=== PATIENT | female | born 1960 | race Caucasian/White ===

== ENCOUNTER 2017-06-10 02:05 | Observation (INO) ==
--- NOTE | 2017-06-10 02:22 | Emergency Department Note ---
Disposition Clinical Impression: COPD exacerbation, Acute viral bronchitis Disposition: Admitted As Inpatient Condition: Fair Time of Disposition: 06:24 SOB HPI - General Chief Complaint: ED Shortness of Breath/Dyspnea Stated Complaint: carmen Time Seen by Provider: 06/10/17 02:13 Source: patient, EMS Limitations: no limitations Nursing Notes Reviewed: Yes Vital Signs Reviewed: Yes - History of Present Illness 57-year-old female complains of worsening shortness of breath over the past 3 days. Patient states she was diagnosed with bronchitis 3 days ago, but today her shortness of breath worsened severely x 3hrs ago. Patient brought in by EMS who states patient was hypoxic at 88% on room air and placed on oxygen via nasal cannula and given DuoNeb. Patient's breathing improved and was brought to the emergency department. Patient denies history of COPD and cardiac disease. Patient has a history of hypertension and hypercholesterolemia. Patient denies any chest pain - Related Data Allergies Allergy/AdvReac Type Severity Reaction Status Date / Time No Known Allergies Allergy Verified 06/10/17 02:11 All systems ED: reviewed and negative except as stated. Review of Systems: As Per HPI Constitutional: Denies: fever, chills, weakness ENT ED: Reports: congestion Cardiovascular: Denies: chest pain, palpitations Respiratory: Reports: cough. Denies: dyspnea Gastrointestinal: Denies: abdominal pain, nausea, vomiting, diarrhea Past Medical History - Past Medical History Attestation: Yes The following information was validated with the patient. Source: patient, nursing notes reviewed Medical history: Reports: fibromyalgia, hypertension, TIA - Social History Smoking Status: Current every day smoker Smokeless Tobacco Status: No Alcohol use: Reports: none Drug use: Reports: none Physical Exam Vital Signs Temperature 98.5 F 06/10/17 02:06 Pulse Rate 109 06/10/17 02:06 Respiratory Rate 24 06/10/17 02:06 Blood Pressure 142/84 06/10/17 02:06 O2 Sat by Pulse Oximetry 100 06/10/17 02:06 Temperature 98.5 F 06/10/17 02:06 Pulse Rate 109 06/10/17 02:06 Respiratory Rate 24 06/10/17 02:06 Blood Pressure 142/84 06/10/17 02:06 O2 Sat by Pulse Oximetry 100 06/10/17 02:06 Oxygen Delivery Oxygen Delivery Aerosol Mask CONSTITUTIONAL: Alert and oriented X3, well-nourished, well appearing, in acute distress secondary to difficulty breathing. Patient's tachypnea And hypertensive at 142/84 but afebrile. At 100% on 2 L via nasal cannula. During exam I was surprised by a bed blood that came out from patient's hairline. Bedbugs were noticeable on patient's purse and other parts of her clothing. HEAD: Normocephalic; atraumatic. EYES: PERRL, no scleral icterus. NOSE: The nose is normal in appearance without rhinorrhea RESP: Fine rales left lower lung field CARD: Regular rhythm, without murmurs, rub or gallop ABD: Non-distended; non-tender, soft,without rigidity, rebound or guarding SKIN: Normal for age and race; warm and dry; no apparent lesions - General Limitations: no limitations General appearance: alert, in no apparent distress Course - Reevaluation(s) Reevaluation #1: Reexamination. Patient states she still does not have any pain but now states that she been having chest pressure. She states currently 5/10. Troponin is negative, EKG negative for ischemia. Aspirin was ordered. Patient will receive nitroglycerin trial. Time: 03:50 Reevaluation #2: I ambulated the patient at bedside. Patient walked around the bed and her O2 saturation levels drop down to 87%. Patient is placed back on 2 L via nasal cannula current plan is for admission. Patient understands and agrees to the decision for admission. Time: 04:39 Vital Signs Temperature 98.5 F 06/10/17 02:06 Pulse Rate 109 06/10/17 02:06 Respiratory Rate 24 06/10/17 02:06 Blood Pressure 142/84 06/10/17 02:06 O2 Sat by Pulse Oximetry 100 06/10/17 02:06 Temperature 98.5 F 06/10/17 02:06 Pulse Rate 90 06/10/17 05:34 Respiratory Rate 20 06/10/17 05:34 Blood Pressure 134/86 06/10/17 05:34 O2 Sat by Pulse Oximetry 95 06/10/17 05:34 Oxygen Delivery Oxygen Delivery Nasal Cannula Shortness of Breath/Dyspnea - MDM Narrative Medical decision making narrative: Acute respiratory distress: Acute onset of difficulty breathing with hypoxia. Patient is low risk under Wells PE criteria. D-dimer ordered Chest x-ray ordered look for pneumonia. Labs ordered to rule out ACS. Patient denies COPD but is a smoker of a half a pack a day previous one pack a day. Patient's lab is unremarkable. Troponin negative. Chest x-ray shows some bilateral lower lung field haziness but no consolidations. Formal read states no acute abnormalities per radiologist. Patient was ambulated and her O2 saturations dropped to 87% with just walking around the bed. Patient is not on oxygen at home and is requiring 2 L via nasal cannula to maintain her O2 sats between 92-94%. I recommended admission to the patient for COPD exacerbation. Patient currently has no chest pressure and is comfortable. Patient received aspirin, Solu-Medrol and DuoNeb was given by EMS, which improved patient's breathing. The patient has no lung wheezing. Patient is accepted for admission by Dr. Cabrera in stable condition. He asked to place patient on levofloxacin 500 mg by mouth. - Lab Data Lab results reviewed: Yes I reviewed the patient's lab results. Result diagrams: 06/10/17 03:02 06/10/17 03:02 Lab Results 06/10/17 06/10/17 06/10/17 Range/Units 03:01 03:02 03:02 WBC 5.5 (4.3-11.1) K/mcL RBC 4.60 (3.82-4.97) M/mcL Hgb 13.4 (11.5-15.4) g/dL Hct 40.3 (35.3-44.9) % MCV 87.6 (83.0-100.0) fL MCH 29.1 (28.0-33.3) pg MCHC 33.3 (31.6-35.5) g/dL RDW 13.2 (11.5-14.5) % Plt Count 194 (140-400) K/mcL MPV 9.3 L (9.4-12.4) fL Immature Gran % 1.1 (0-4) % Seg Neutrophils % 84.0 % Lymphocytes % 7.3 % Monocytes % 7.4 % Eosinophils % 0.0 % Basophils % 0.2 % Neutrophils # 4.6 (1.6-8.9) K/mcL Lymphocytes # 0.4 L (0.6-4.6) K/mcL Monocytes # 0.4 (0.0-1.3) K/mcL Eosinophils # 0.0 (0.0-0.6) K/mcL Basophils # 0.0 (0.0-0.2) K/mcL D-Dimer (0-500) ng/mLFEU Sodium 139 (136-145) mEq/L Potassium 3.8 (3.5-5.1) mEq/L Chloride 107 (98-107) mEq/L Carbon Dioxide 26 (23-29) mEq/L BUN 31 H (6-20) mg/dL Creatinine 0.95 (0.60-1.20) mg/dL Est GFR ( Amer) > 60 (> 60) Est GFR (Non-Af Amer) > 60 (> 60) BUN/Creatinine Ratio 33 H (6-26) Glucose 186 H (70-105) mg/dL Calculated Osmolality 299 (280-300) Calcium 9.0 (8.6-10.3) mg/dL Troponin I (< 0.04) ng/mL B-Natriuretic Peptide 74 (Less than 100) pg/mL 06/10/17 06/10/17 Range/Units 03:02 03:02 WBC (4.3-11.1) K/mcL RBC (3.82-4.97) M/mcL Hgb (11.5-15.4) g/dL Hct (35.3-44.9) % MCV (83.0-100.0) fL MCH (28.0-33.3) pg MCHC (31.6-35.5) g/dL RDW (11.5-14.5) % Plt Count (140-400) K/mcL MPV (9.4-12.4) fL Immature Gran % (0-4) % Seg Neutrophils % % Lymphocytes % % Monocytes % % Eosinophils % % Basophils % % Neutrophils # (1.6-8.9) K/mcL Lymphocytes # (0.6-4.6) K/mcL Monocytes # (0.0-1.3) K/mcL Eosinophils # (0.0-0.6) K/mcL Basophils # (0.0-0.2) K/mcL D-Dimer 260 (0-500) ng/mLFEU Sodium (136-145) mEq/L Potassium (3.5-5.1) mEq/L Chloride (98-107) mEq/L Carbon Dioxide (23-29) mEq/L BUN (6-20) mg/dL Creatinine (0.60-1.20) mg/dL Est GFR ( Amer) (> 60) Est GFR (Non-Af Amer) (> 60) BUN/Creatinine Ratio (6-26) Glucose (70-105) mg/dL Calculated Osmolality (280-300) Calcium (8.6-10.3) mg/dL Troponin I < 0.03 (< 0.04) ng/mL B-Natriuretic Peptide (Less than 100) pg/mL - Radiology Data Radiology results reviewed: Yes I reviewed the patient's radiology results. Chest X-Ray 06/10/17 02:26 IMPRESSION: No acute cardiopulmonary abnormality. D/ / Manny Ferreira MD / Manny Ferreira MD Interpreting Provider: Manny Ferreira MD - EKG Data EKG attestation: Yes I reviewed and interpreted this EKG. EKG results narrative: EKG taken 06/10/2017@0-16 hours shows sinus tachycardia at a rate of [address] elevations in any leads, patient has slight ST depressions in V3 no T-wave inversions previous EKG for comparison taken 10/21/2004 shows similar waveform was T-wave inversions in anterior leads. Today's EKG looks better than previous. Attestation Statement - Attestation Attestation: I examined this patient and my medical decision-making was reviewed with the Resident Physician. I agree with the documented findings, disposition and treatment plan as described except to the extent set forth below. Patient eating or shortness of breath. Onset 3 days ago worsening today. Coughing. Brought in by EMS. Found hypoxic at 88% on room air. On examination here she is in no distress. Crackles in bases. Diminished breath sounds. Heart regular. Mildly tachycardic. Plan. Patient was mildly tachycardic so we did order a d-dimer which was negative. Cardiac workup was negative. Chest x-ray clear. She was given steroids. Admitted to medicine for further treatment of her bronchitis with hypoxemia. 35 minutes of critical care exclusive of separately billable procedures. Chest Pain - Lab Data Result diagrams: 06/10/17 03:02 02/10/18 03:02 Lab Results 06/10/17 06/10/17 06/10/17 Range/Units 03:01 03:02 03:02 WBC 5.5 (4.3-11.1) K/mcL RBC 4.60 (3.82-4.97) M/mcL Hgb 13.4 (11.5-15.4) g/dL Hct 40.3 (35.3-44.9) % MCV 87.6 (83.0-100.0) fL MCH 29.1 (28.0-33.3) pg MCHC 33.3 (31.6-35.5) g/dL RDW 13.2 (11.5-14.5) % Plt Count 194 (140-400) K/mcL MPV 9.3 L (9.4-12.4) fL Immature Gran % 1.1 (0-4) % Seg Neutrophils % 84.0 % Lymphocytes % 7.3 % Monocytes % 7.4 % Eosinophils % 0.0 % Basophils % 0.2 % Neutrophils # 4.6 (1.6-8.9) K/mcL Lymphocytes # 0.4 L (0.6-4.6) K/mcL Monocytes # 0.4 (0.0-1.3) K/mcL Eosinophils # 0.0 (0.0-0.6) K/mcL Basophils # 0.0 (0.0-0.2) K/mcL D-Dimer (0-500) ng/mLFEU Sodium 139 (136-145) mEq/L Potassium 3.8 (3.5-5.1) mEq/L Chloride 107 (98-107) mEq/L Carbon Dioxide 26 (23-29) mEq/L BUN 31 H (6-20) mg/dL Creatinine 0.95 (0.60-1.20) mg/dL Est GFR ( Amer) > 60 (> 60) Est GFR (Non-Af Amer) > 60 (> 60) BUN/Creatinine Ratio 33 H (6-26) Glucose 186 H (70-105) mg/dL Calculated Osmolality 299 (280-300) Calcium 9.0 (8.6-10.3) mg/dL Troponin I (< 0.04) ng/mL B-Natriuretic Peptide 74 (Less than 100) pg/mL 06/10/17 06/10/17 Range/Units 03:02 03:02 WBC (4.3-11.1) K/mcL RBC (3.82-4.97) M/mcL Hgb (11.5-15.4) g/dL Hct (35.3-44.9) % MCV (83.0-100.0) fL MCH (28.0-33.3) pg MCHC (31.6-35.5) g/dL RDW (11.5-14.5) % Plt Count (140-400) K/mcL MPV (9.4-12.4) fL Immature Gran % (0-4) % Seg Neutrophils % % Lymphocytes % % Monocytes % % Eosinophils % % Basophils % % Neutrophils # (1.6-8.9) K/mcL Lymphocytes # (0.6-4.6) K/mcL Monocytes # (0.0-1.3) K/mcL Eosinophils # (0.0-0.6) K/mcL Basophils # (0.0-0.2) K/mcL D-Dimer 260 (0-500) ng/mLFEU Sodium (136-145) mEq/L Potassium (3.5-5.1) mEq/L Chloride (98-107) mEq/L Carbon Dioxide (23-29) mEq/L BUN (6-20) mg/dL Creatinine (0.60-1.20) mg/dL Est GFR ( Amer) (> 60) Est GFR (Non-Af Amer) (> 60) BUN/Creatinine Ratio (6-26) Glucose (70-105) mg/dL Calculated Osmolality (280-300) Calcium (8.6-10.3) mg/dL Troponin I < 0.03 (< 0.04) ng/mL B-Natriuretic Peptide (Less than 100) pg/mL Heart Score - Score History: Moderately Suspicious EKG: Non Specific repolarisation Disturbance Age: 45-65 Risk Factors: Equal/Greater than 3 risk factor or history of atherosclerotic disease Troponin: Less than normal limit HEART Score Total: 5
[2017-06-10 03:08] LABS: Basophils % 0.2 %; Hematocrit 40.3 % (35.3-44.9); Hemoglobin 13.4 g/dL (11.5-15.4); Immature Granulocytes % 1.1 % (0-4); Lymphocytes # 0.4 K/mcL (0.6-4.6); Lymphocytes % 7.3 %; Mean Corpuscular HGB Conc 33.3 g/dL (31.6-35.5); Mean Corpuscular Hemoglobin 29.1 pg (28.0-33.3); Mean Corpuscular Volume 87.6 fL (83.0-100.0); Mean Platelet Volume 9.3 fL (9.4-12.4); Monocytes # 0.4 K/mcL (0.0-1.3); Monocytes % 7.4 %; Neutrophils # 4.6 K/mcL (1.6-8.9); Platelet Count 194 K/mcL (140-400); Red Cell Distribution Width 13.2 % (11.5-14.5)
[2017-06-10 03:22] LABS: BUN/Creatinine Ratio 33 (6-26); Blood Urea Nitrogen 31 mg/dL (6-20); Carbon Dioxide 26 mEq/L (23-29); Chloride 107 mEq/L (98-107); Glucose 186 mg/dL (70-105); Osmolality,Calculated 299 (280-300); Potassium 3.8 mEq/L (3.5-5.1); Sodium 139 mEq/L (136-145); eGFR For African Americans > 60 (> 60); eGFR For Non-African Americans > 60 (> 60)
[2017-06-10] MEDS ORDERED: Aspirin 81 MG TAB.CHEW PO ONE (03:48)
[2017-06-10] MEDS ORDERED: Nitroglycerin 0.4 MG TAB.SUBL SL PRN (04:21)
[2017-06-10] MEDS ORDERED: 0.9 % Sodium Chloride 1,000 ML IVC ONE (04:38)
[2017-06-10] MEDS ORDERED: methylPREDNISolone 125 MG/2 ML VIAL IVP ONE (04:38)
[2017-06-10] MEDS ORDERED: levoFLOXacin 500 MG TABLET PO ONE (05:20)
[2017-06-10] MEDS ORDERED: Naloxone 0.4 MG/ML INJ IVP PRN (07:47)
[2017-06-10] MEDS: MethylPREDNISolone 40 MG/ML VIAL IVP SCH ×3 (08:05→23:31)
--- NOTE | 2017-06-10 10:13 | Internal Med History&Physical ---
Date of Encounter: 06/10/17 Time of Encounter: 09:00 Assessment and Plan (1) Chest pain Current visit: Yes Status: Acute Retrosternal chest pain likely related to acute bronchitis and cough. EKG and chest x-ray showed no acute abnormality. Initial troponin is normal. Continue telemetry monitoring and trend troponins. Qualifiers: Chest pain type: unspecified Qualified Code(s): R07.9 - Chest pain, unspecified (2) COPD exacerbation Current visit: Yes Status: Acute Start IV steroids along with supplemental oxygen and bronchodilators. Chest x- ray shows no acute infiltrates/pneumonia. Not on home oxygen, requires home oxygen evaluation prior to discharge. Check respiratory infection panel. (3) Tobacco abuse Current visit: Yes Status: Chronic Continue nicotine transdermal patch. (4) Essential hypertension Current visit: Yes Status: Chronic Blood pressure well controlled. Resume home medications. (5) Hyperlipidemia Current visit: Yes Status: Chronic Qualifiers: Hyperlipidemia type: unspecified Qualified Code(s): E78.5 - Hyperlipidemia , unspecified (6) Fibromyalgia Current visit: Yes Status: Chronic Continue home medications. Internal Medicine - H&P: HPI Chief complaint: Shortness of breath Admitted From: Emergency Dept Plans for Post Hospital Care: Home History of present illness: Ms. Rae is a 57 year old female with history of hypertension and tobacco abuse , presents with complaints of worsening shortness of breath and malaise. Patient reports symptom onset was about one week ago, when she presented to her primary care provider and was diagnosed with acute bronchitis and was prescribed Z-Onel and prednisone. She completed her antibiotics and is still on her prednisone. However, she continued to experience worsening shortness of breath, wheezing, dry cough associated with generalized weakness and malaise. No fever, chills, palpitations, dizziness or syncope. She is an active smoker. Patient was noted to have bedbug infestation in the emergency room and is currently on contact precautions for this. Past Med Surg Social Fam HX - Past Medical History Medical history: fibromyalgia, hypertension, TIA Psychiatric history: anxiety, depression - Past Surgical History Surgical History: hysterectomy - Social History Smoking Status: Current every day smoker Packs per day: less than half pack Smokeless Tobacco Status: No Alcohol use: none Drug use: none Occupational status: disabled Current living situation: Home - Independent Activity Level: Uses cane/walker Recent Out of Country Travel Within the Last 8 Weeks: No Exposure or Possible Exposure to Illness During Travel: No - Family History Mother Hx Family Neurologic Disorders: Yes (TIA) Internal Medicine - H&P: Meds Albuterol Sulfate [Ventolin Hfa] 1 puff IH AD 06/10/17 [History] Gabapentin [Neurontin] 100 mg PO TID 06/10/17 [History] Lisinopril-HCTZ 20-12.5 [Prinzide 20-12.5] 1 tab PO DAILY 06/10/17 [History] Simvastatin [Zocor] 10 mg PO DAILY 06/10/17 [History] amLODIPine [Norvasc] 5 mg PO DAILY 06/10/17 [History] predniSONE [PredniSONE] 1 tab PO BID 06/10/17 [History] 3 Allergy/AdvReac Type Severity Reaction Status Date / Time No Known Allergies Allergy Verified 06/10/17 02:11 All Systems PM: A 10-system review of systems was performed and is negative for pertinent findings except as documented above in the HPI. - Constitutional Constitutional: anorexia, fatigue, malaise, no chills, no fever(s), no night sweats - EENT Eyes: no change in vision, no discharge, no pain, no photophobia Ears: no ear discharge, no ear pain, no tinnitus Nose, mouth and throat: no dysphagia, no nasal discharge, no neck pain, no sore throat - Cardiovascular Cardiovascular ROS IM: chest pain - Respiratory Respiratory: cough, dyspnea, dyspnea on exertion, wheezing, chest congestion - Gastrointestinal Gastrointestinal: no abdominal pain, no diarrhea, no hematemesis, no hematochezia, no melena, no nausea, no vomiting - Genitourinary Genitourinary: no change in urinary stream, no dysuria, no flank pain, no hematuria - Musculoskeletal Musculoskeletal ROS IM: no numbness, no tingling - Integumentary Integumentary IM: no rash, no unusual bruising - Neurological Neurological ROS: no confusion, no convulsions, no focal weakness, no numbness, no tingling, no tremor(s) - Hematologic/Lymphatic Hematologic/Lymphatic: no easy bruising - Constitutional Vitals: Temp Pulse Resp BP Pulse Ox 98.7 F 97 18 151/83 93 06/10/17 07:41 06/10/17 07:41 06/10/17 07:41 06/10/17 07:41 06/10/17 07:41 General appearance: Present: A&O X 3, answers questions appropriately - Respiratory Respiratory exam: Present: CTAB (Coarse breath sounds bilaterally, scattered rhonchi). Absent: accessory muscle use, rales, rhonchi, wheezes - Cardiovascular Cardiovascular exam: Present: RRR, +S1, +S2. Absent: diastolic murmur, gallop, rubs, systolic murmur - GI/Abdominal GI/Abdominal exam: Present: normal bowel sounds, soft (Obese), no peritoneal signs. Absent: distended, tenderness - Extremities Exam Extremities exam: Present: full ROM, warm, radial pulses palpable and symmetrical. Absent: calf tenderness, cyanotic, pedal edema - Neurological Exam Neurological exam: Present: CN II-XII intact, oriented X3, no focal deficits. Absent: pronater drift, facial droop, speech deficit Internal Med - H&P Results - Labs CBC & Chem 7: 06/11/17 06:17 06/11/17 06:17 Labs: Cardiac Enzymes 06/10/17 Range/Units 08:10 Troponin I < 0.03 (< 0.04) ng/mL
[2017-06-10] MEDS: Ipratropium/Albuterol Neb 3 ML IH PRN ×2 (12:42→22:06)
[2017-06-10] MEDS: amLODIPine 5 MG TABLET PO SCH (16:11)
[2017-06-10] MEDS: Gabapentin 100 MG CAPSULE PO SCH ×2 (16:11→20:11)
[2017-06-10 19:35] LABS: Adenovirus Not Detected (Not Detect); Bordetella Pertussis Not Detected (Not Detect); Chlamydophila pneumoniae Not Detected (Not Detect); Coronavirus 229E Not Detected (Not Detect); Coronavirus HKU1 Not Detected (Not Detect); Coronavirus NL63 Not Detected (Not Detect); Coronavirus OC43 Not Detected (Not Detect); Human Metapneumovirus Not Detected (Not Detect); Human Rhinovirus/Enterovirus Not Detected (Not Detect); Influenza A Subtype 2009 H1 Not Detected (Not Detect); Influenza A Untypeable Not Detected (Not Detect); Influenza B Not Detected (Not Detect); Mycoplasma pneumoniae Not Detected (Not Detect); Parainfluenza Virus 1 Not Detected (Not Detect); Parainfluenza Virus 2 Not Detected (Not Detect); Parainfluenza Virus 3 Not Detected (Not Detect); Parainfluenza Virus 4 Not Detected (Not Detect); Respiratory Syncytial Virus Not Detected (Not Detect)
[2017-06-11 06:39] LABS: Hematocrit 38.7 % (35.3-44.9); Hemoglobin 12.5 g/dL (11.5-15.4); Immature Granulocytes % 1.3 % (0-4); Lymphocytes # 0.4 K/mcL (0.6-4.6); Lymphocytes % 7.5 %; Mean Corpuscular HGB Conc 32.3 g/dL (31.6-35.5); Mean Corpuscular Hemoglobin 28.7 pg (28.0-33.3); Mean Platelet Volume 9.6 fL (9.4-12.4); Monocytes # 0.3 K/mcL (0.0-1.3); Neutrophils # 4.7 K/mcL (1.6-8.9); Platelet Count 206 K/mcL (140-400); Red Blood Count 4.35 M/mcL (3.82-4.97); Red Cell Distribution Width 13.3 % (11.5-14.5); Segmented Neutrophils % 86.2 %
[2017-06-11 06:57] LABS: BUN/Creatinine Ratio 40 (6-26); Blood Urea Nitrogen 29 mg/dL (6-20); Calcium 8.7 mg/dL (8.6-10.3); Carbon Dioxide 32 mEq/L (23-29); Chloride 107 mEq/L (98-107); Cholesterol 148 mg/dL (< 200); Glucose 152 mg/dL (70-105); HDL Cholesterol 49 mg/dL (40-59); LDL Cholesterol,Calculated 70 mg/dL (0-99); Osmolality,Calculated 301 (280-300); Sodium 141 mEq/L (136-145); Triglycerides 146 mg/dL (< 150); eGFR For African Americans > 60 (> 60); eGFR For Non-African Americans > 60 (> 60)
[2017-06-11] MEDS: Gabapentin 100 MG CAPSULE PO SCH ×3 (09:50→20:29)
[2017-06-11] MEDS: MethylPREDNISolone 40 MG/ML VIAL IVP SCH ×3 (09:50→23:54)
[2017-06-11] MEDS: amLODIPine 5 MG TABLET PO SCH (09:50)
[2017-06-11] MEDS: Ipratropium/Albuterol Neb 3 ML IH PRN ×2 (10:39→22:00)
[2017-06-11] MEDS: Acetaminophen 325 MG TABLET PO PRN (16:28)
--- NOTE | 2017-06-11 17:15 | Internal Med Progress Note ---
Date of Encounter: 06/11/17 Time of Encounter: 14:00 - Assessment and plan (1) Chest pain Current Visit: Yes Status: Acute Assessment and plan: Respiratory infection pattern tested positive for influenza A. Chest pain may be related to acute bronchitis. No acute EKG changes. Serial troponins negative for ACS. Continue telemetry. Qualifiers: Chest pain type: unspecified Qualified Code(s): R07.9 - Chest pain, unspecified (2) COPD exacerbation Current Visit: Yes Status: Acute Assessment and plan: Likely due to acute viral bronchitis. Improving slowly. Continue IV steroids, taper down as tolerated. Continue bronchodilators, supplemental oxygen as needed. Currently requiring at least 2-3 L/m via nasal cannula, wean down FiO2 as tolerated. Respiratory infection panel positive for influenza A. Tamiflu not beneficial at this time due to symptom onset more than 7 days ago. Droplet precautions. Supportive care. Physical and occupational therapy evaluation. (3) Tobacco abuse Current Visit: Yes Status: Chronic Assessment and plan: Continue nicotine transdermal patch. (4) Essential hypertension Current Visit: Yes Status: Chronic Assessment and plan: Blood pressure acceptable. Continue home medications. (5) Hyperlipidemia Current Visit: Yes Status: Chronic Qualifiers: Hyperlipidemia type: unspecified Qualified Code(s): E78.5 - Hyperlipidemia , unspecified (6) Fibromyalgia Current Visit: Yes Status: Chronic - Subjective Interval history: Reports feeling better. Continues to have intermittent dry cough along with some shortness of breath, has generalized weakness. No nausea, vomiting, diarrhea. Improved chest pain. - Constitutional Vitals: Temp Pulse Resp BP Pulse Ox 98.4 F 70 18 125/82 95 06/11/17 16:17 06/11/17 16:17 06/11/17 16:17 06/11/17 16:17 06/11/17 16:17 General appearance: Present: A&O X 3, answers questions appropriately - Respiratory Respiratory exam: Present: CTAB (Coarse breath sounds bilaterally, scattered rhonchi). Absent: accessory muscle use, rales, rhonchi, wheezes - Cardiovascular Cardiovascular exam: Present: RRR, +S1, +S2. Absent: diastolic murmur, gallop, rubs, systolic murmur - GI/Abdominal GI/Abdominal exam: Present: normal bowel sounds, soft, no peritoneal signs. Absent: distended, tenderness - Extremities Exam Extremities exam: Present: full ROM, warm, radial pulses palpable and symmetrical. Absent: calf tenderness, cyanotic, pedal edema Internal Medicine: Result - Labs CBC & Chem 7: 06/11/17 06:17 06/11/17 06:17 Labs: Short CBC 06/11/17 Range/Units 06:17 WBC 5.5 (4.3-11.1) K/mcL Hgb 12.5 (11.5-15.4) g/dL Hct 38.7 (35.3-44.9) % Plt Count 206 (140-400) K/mcL Neutrophils # 4.7 (1.6-8.9) K/mcL BMP 06/11/17 06:17 Sodium 141 Potassium 4.0 Chloride 107 Carbon Dioxide 32 H BUN 29 H Creatinine 0.72 Glucose 152 H Calcium 8.7 Cardiac Enzymes 06/10/17 Range/Units 18:09 Troponin I < 0.03 (< 0.04) ng/mL - ABG Interpretation ABG results: PT/INR, D-dimer D-Dimer 260 ng/mLFEU (0-500) 06/10/17 03:02 - VTE Documentation of Mechanical Device: Intermittent pneumatic compression device Consult Discharge Plan - Plan Instructions: Chest Pain (DC), How to Stop Smoking (DC), Chronic Obstructive Pulmonary Disease (DC), Chronic Hypertension (DC) Additional Instructions: F/up with PCP in 1-2 weeks F/up with Behavioral health at [facility] as scheduled Referrals: Travis Pickens, PAC [Primary Care Provider] - Prescriptions: predniSONE [PredniSONE] 40 mg PO DAILY #10 tablet
[2017-06-12] MEDS: Acetaminophen 325 MG TABLET PO PRN (11:07)
[2017-06-12] MEDS: MethylPREDNISolone 40 MG/ML VIAL IVP SCH (11:07)
[2017-06-12] MEDS: amLODIPine 5 MG TABLET PO SCH (11:07)
[2017-06-12] MEDS: Gabapentin 100 MG CAPSULE PO SCH (11:07)
--- NOTE | 2017-06-12 11:10 | Discharge Summary ---
Date of Encounter: 06/12/17 Time of Encounter: 11:08 - Discharge Diagnosis (1) Chest pain Priority: Primary Status: Acute Qualifiers: Chest pain type: unspecified Qualified Code(s): R07.9 - Chest pain, unspecified (2) COPD exacerbation Priority: Primary Status: Acute (3) Tobacco abuse Priority: Secondary Status: Chronic (4) Essential hypertension Priority: Secondary Status: Chronic (5) Hyperlipidemia Priority: Secondary Status: Chronic Qualifiers: Hyperlipidemia type: unspecified Qualified Code(s): E78.5 - Hyperlipidemia , unspecified (6) Fibromyalgia Priority: Secondary Status: Chronic - Discharge Medications Prescriptions: predniSONE [PredniSONE] 40 mg PO DAILY #10 tablet Home Medications: Albuterol Sulfate [Ventolin Hfa] 1 puff IH AD 06/10/17 [History] Gabapentin [Neurontin] 100 mg PO TID 06/10/17 [History] Lisinopril-HCTZ 20-12.5 [Prinzide 20-12.5] 1 tab PO DAILY 06/10/17 [History] Simvastatin [Zocor] 10 mg PO DAILY 06/10/17 [History] amLODIPine [Norvasc] 5 mg PO DAILY 06/10/17 [History] predniSONE [PredniSONE] 40 mg PO DAILY #10 tablet 06/12/17 [Rx] Allergies/Adverse Reactions: 3 Allergy/AdvReac Type Severity Reaction Status Date / Time No Known Allergies Allergy Verified 06/10/17 02:11 Date of admission: 06/10/17 05:34 Primary care physician: Travis Pickens Consults: 06/11/17 17:11 Consult to Occupational Therapy [CONS] Routine Comment: Evaluate, develop and implement POC Reason for Consult: Generalized weakness, malaise, flu Consult to Physical Therapy [CONS] Routine Comment: Evaluate, develop and implement POC Reason for Consult: Generalized weakness, malaise, flu Discharging clinician: Vilma Merritt date of discharge: 06/12/17 - Patient Status Disposition: Home, Self-Care Condition: Good Functional capacity at discharge: independent ambulation Overall status at discharge: patient is progressing back to baseline - Discharge Instructions Instructions: Chest Pain (DC), How to Stop Smoking (DC), Chronic Obstructive Pulmonary Disease (DC), Chronic Hypertension (DC) Follow Up With: Travis Pickens PAC [Primary Care Provider] - Additional Instructions: F/up with PCP in 1-2 weeks F/up with Behavioral health at [facility] as scheduled - Diet and Activity Activity: resume usual activities as tolerated Diet: low fat, low cholesterol, low salt diet Hospital course: Ms. Rae is a 57 year old female with the above medical problems, who was admitted with worsening shortness of breath and cough. SHe was noted to have acute exacerbation of COPD and started on IV steroids, bronchodilators and supplemental o2. Chest XRay showed no e/o- Pneumonia. Respiratory infection panel tested positive for Influenza A. But patient's symptom onset was more than a week ago and she would not benefit from Tamiflu. sHe has been treated with Z-pack and Prednisone as outpatient. Her symptoms gradually improved and she is no longer requiring supplemental O2. Home O2 evaluation was done and did not qualify. PT/OT evaluation was done, recommended HHS, social work case manager consulted and referral made for HHS. SHe is medically stable for discharge with outpatient f/up. - Time Spent with Patient Total time spent providing and/or coordinating discharge services: Greater than 30 minutes (40 min) - Constitutional Vitals: Temp Pulse Resp BP Pulse Ox 98.1 F 72 16 132/70 92 06/12/17 06:49 06/12/17 06:49 06/12/17 06:49 06/12/17 06:49 06/12/17 06:49 General appearance: Present: A&O X 3, answers questions appropriately - Respiratory Respiratory exam: Present: decreased breath sounds (decreased air entry B/L), CTAB, rhonchi (scattered rhonchi- minimal). Absent: accessory muscle use, rales , wheezes - VTE Documentation of Mechanical Device: Intermittent pneumatic compression device
[2017-06-12 11:47] VITALS: BP 122/81
--- NOTE | 2017-06-12 16:25 | Electrocardiograph Report ---
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
--- NOTE | 2017-06-12 23:12 | Physician Discharge Referral ---
Home Health/Hosp Referral Info Transfer to: Home Health Attending Provider: Vilma Castro Provider in Charge Post Discharge: PCP - Diagnosis (1) Chest pain Priority: Primary Status: Acute (2) COPD exacerbation Priority: Primary Status: Acute (3) Tobacco abuse Priority: Secondary Status: Chronic (4) Essential hypertension Priority: Secondary Status: Chronic (5) Hyperlipidemia Priority: Secondary Status: Chronic (6) Fibromyalgia Priority: Secondary Status: Chronic - Respiratory Orders Smoking Cessation: Smoking cessation has been advised. For more information, call the [place] Tobacco Quit Line at 6-927-GYWQ-NOW. - Diet/Nutrition Diet/Nutrition Orders: Cardiac - Activity Activity Orders: Ambulate, Walker - Services Needed Following services are medically necessary services: Nursing, Physical Therapy, Occupational Therapy - Transfer Medications Prescriptions: predniSONE [PredniSONE] 40 mg PO DAILY #10 tablet Home Medications: Albuterol Sulfate [Ventolin Hfa] 1 puff IH AD 06/10/17 [History] Gabapentin [Neurontin] 100 mg PO TID 06/10/17 [History] Lisinopril-HCTZ 20-12.5 [Prinzide 20-12.5] 1 tab PO DAILY 06/10/17 [History] Simvastatin [Zocor] 10 mg PO DAILY 06/10/17 [History] amLODIPine [Norvasc] 5 mg PO DAILY 06/10/17 [History] predniSONE [PredniSONE] 40 mg PO DAILY #10 tablet 06/12/17 [Rx] Allergies/Adverse Reactions: 3 Allergy/AdvReac Type Severity Reaction Status Date / Time No Known Allergies Allergy Verified 06/10/17 02:11 Certification: Further, I certify that my clinical findings support that this patient is homebound (i.e. absences from home require considerable and taxing effort and are for medical reasons or judaism services or infrequently or short duration when for other reasons) because: Homebound Reason: Patient requires assistance of a person or device to safely leave home, Leaving home requires considerable and taxing effort due to condition Attestation: My signature below is to certify that this patient is under my care and that I, or nurse practitioner, or a physician's microbiology lab assistant working with me, has a face-to -face encounter with this patient.
== END 2017-06-12 16:20 | disposition home health service (06) ==
LOC: EMEROO 02:05 → 3BNU 02:05 → SUATTDRO 05:34 → 3BNU 06:08
PROVIDERS: ADMIT Family Medicine; ATTEND Internal Medicine